=== PATIENT | male | born 1985 | race American Indian/Alaskan Native ===

== ENCOUNTER 2017-02-01 21:15 | Inpatient (IN) | payer MEDICARE ==
[2017-02-01] MEDS ORDERED: SUBLIMAZE IV ONE (22:23)
[2017-02-01] MEDS ORDERED: ZOFRAN IV ONE (22:23)
--- NOTE | 2017-02-01 22:25 | Emergency Department Report ---
HPI - General Chief Complaint: Chest Pain Time Seen by Provider: 02/01/17 22:09 - HPI HPI: Room 6 The patient is a 29-year-old male presenting with a chief complaint of shortness of breath. The patient states last night developed shortness of breath and has been worsening since. Patient admits to occasional cough productive of blood-tinged sputum. Patient complains of pain in the right rib. Patient does admit to rhinorrhea and nausea but denies vomiting. Patient denies any history of fever. Patient gives his pain a score of 11/10 Location: Right ribs Duration: Constant since last night Quality: Pain Severity:11/10 Modifying factors: [see above] Context: [see above] Mode of transportation: [not driving] ED Past Medical Hx - Past Medical History Previous Medical History?: Yes Hx Congestive Heart Failure: Yes Hx Renal Disease: Yes (Dialysis MWF) - Surgical History Past Surgical History?: No Additional Surgical History: Left upper extremity fistula, nonfunctional. - Social History Smoking Status: Never Smoker Substance Use Type: Marijuana ED Review of Systems ROS: Stated complaint: ZEYNEP/DIALYSIS Other details as noted in HPI Comment: All other systems reviewed and negative Constitutional: denies: chills, fever Eyes: denies: eye pain, eye discharge, vision change ENT: other (rhinorrhea) Respiratory: cough, shortness of breath Cardiovascular: denies: chest pain Endocrine: no symptoms reported Gastrointestinal: nausea. denies: vomiting Genitourinary: denies: urgency, dysuria Musculoskeletal: denies: back pain, joint swelling, arthralgia Skin: denies: rash, lesions Neurological: denies: headache, weakness, paresthesias Psychiatric: denies: anxiety, depression Hematological/Lymphatic: denies: easy bleeding, easy bruising Physical Exam - Physical Exam Physical Exam: GENERAL: The patient is well-developed well-nourished male sitting on stretcher appearing to be in moderate discomfort. [] HEENT: Normocephalic. Atraumatic. Extraocular motions are intact. Patient has moist mucous membranes. NECK: Supple. Trachea midline CHEST/LUNGS: Clear to auscultation. There is no respiratory distress noted. HEART/CARDIOVASCULAR: Regular. There is no tachycardia. There is no gallop rub or murmur. ABDOMEN: Abdomen is soft, nontender. Patient has normal bowel sounds. There is no abdominal distention. SKIN: There is no rash. There is no edema. There is no diaphoresis. NEURO: The patient is awake, alert, and oriented. The patient is cooperative. The patient has normal speech MUSCULOSKELETAL: There is no evidence of acute injury. ED Course - Consultations Consultation #1: 02/01/17 22:59 Nephrology paged 02/01/17 23:[address] Calderon-Will arrange hemodialysis ED Medical Decision Making - Lab Data Result diagrams: 02/01/17 22:13 02/01/17 22:13 Laboratory Tests 02/01/17 02/01/17 02/01/17 22:13 22:13 22:13 WBC 12.7 H RBC 4.80 Hgb 11.4 L Hct 37.0 MCV 77 L MCH 24 L MCHC 31 L RDW 20.4 H Plt Count 179 Lymph % (Auto) 9.5 L [place] % (Auto) 7.8 H Eos % (Auto) 0.5 Baso % (Auto) 1.2 Lymph # 1.2 [place] # 1.0 H Eos # 0.1 Baso # 0.2 H Seg Neutrophils % 81.0 H Seg Neutrophils # 10.3 H PT 16.0 H INR 1.29 H APTT 37.0 H Sodium 136 L Potassium 6.8 H* Chloride 99.5 Carbon Dioxide 20 L Anion Gap 23 BUN 51 H Creatinine 4.3 H Estimated GFR 19 BUN/Creatinine Ratio 11.86 Glucose 96 Calcium 10.0 Total Creatine Kinase 66 CK-MB (CK-2) 1.0 CK-MB (CK-2) Rel Index 1.5 Troponin T < 0.010 - EKG Data -: EKG Interpreted by Me EKG shows normal: sinus rhythm Rate: normal - EKG Data When compared to previous EKG there are: previous EKG unavailable Interpretation: nonspecific ST-T wave cynthia (T-wave inversions in leads 1, aVL, V5 , V6. ) - Radiology Data Radiology results: image reviewed (chest x-ray) interpreted by me: Chest x-ray- right upper lobe opacity. No pneumothorax - Differential Diagnosis CHF, pneumonia, hyperkalemia, PE Critical Care Time: Yes Critical care time in (mins) excluding proc time.: 30 Critical care attestation.: If time is entered above; I have spent that time in minutes in the direct care of this critically ill patient, excluding procedure time. ED Disposition Clinical Impression: Shortness of breath, Hyperkalemia, End stage renal disease Disposition: OP ADMITTED IP TO THIS HOSP Is pt being admited?: Yes Does the pt Need Aspirin: Yes Condition: Serious Referrals: PRIMARY CARE,MD [Primary Care Provider] - 3-5 Days Time of Disposition: 23:16 (is discussed with Dr. Sheldon)
[2017-02-01 22:30] LABS: Basophils % (Auto) 1.2 % (0.0-1.8); Eosinophils % (Auto) 0.5 % (0.0-4.3); Hemoglobin 11.4 gm/dl (11.8-15.2); Mean Corpuscular HGB Conc 31 % (32-34); Mean Corpuscular Volume 77 fl (84-94); Platelet Count 179 K/mm3 (140-440); White Blood Count 12.7 K/mm3 (4.5-11.0)
[2017-02-01 22:31] LABS: Mean Corpuscular Hemoglobin 24 pg (28-32); Red Cell Distribution Width 20.4 % (13.2-15.2)
[2017-02-01 22:41] LABS: INR 1.29 (0.87-1.13)
[2017-02-01 22:49] LABS: Anion Gap 23 mmol/L; BUN/Creatinine Ratio 11.86; Blood Urea Nitrogen 51 mg/dL (9-20); Carbon Dioxide 20 mmol/L (22-30); Chloride 99.5 mmol/L (98-107); Creatine Kinase 66 units/L (55-170); Glucose 96 mg/dL (75-100); Sodium 136 mmol/L (137-145)
[2017-02-01 22:54] LABS: Potassium 6.8 mmol/L (3.6-5.0)
[2017-02-01] MEDS ORDERED: PROVENTIL IH ONE (22:55)
[2017-02-01] MEDS ORDERED: SODIUM BICARBONATE IV ONE ×2 (22:56→23:15)
[2017-02-01] MEDS ORDERED: CALCIUM GLUCONATE 1,000 MG in NACL 0.9% 100 ML IV ONE (22:56)
[2017-02-01] MEDS ORDERED: D50W (25GM) IV ONE (22:56)
[2017-02-01] MEDS ORDERED: NACL 0.9% 100 ML IV PRN (23:27)
[2017-02-02] MEDS: HEPARIN IV PRN (04:00)
[2017-02-02] MEDS: DILAUDID IV PRN ×4 (05:53→20:23)
[2017-02-02] MEDS ORDERED: ZOFRAN IV PRN (05:55)
--- NOTE | 2017-02-02 07:11 | Event Note ---
Date: 02/01/17 See H/p in reports Hyperkalemia Volume overload Htn ESRD on HD
[2017-02-02] MEDS ORDERED: NACL ONE (07:31)
[2017-02-02 08:01] LABS: BUN/Creatinine Ratio 8.7; Calcium 9.5 mg/dL (8.4-10.2); Potassium 4.9 mmol/L (3.6-5.0)
--- NOTE | 2017-02-02 08:21 | History and Physical Report ---
CHIEF COMPLAINT: 1.Increasing shortness of breath. 2.Feels weak. HISTORY OF PRESENT ILLNESS: A 31-year-old -[place] male comes in for increasing shortness of breath. The patient missed dialysis on Friday. The patient also has blood-tinged sputum when coughing, which did not persist. Had one episode of small blood tinged sputum. No fever, no chills. Noncompliance. Missed dialysis. No chest pain. No orthopnea present. No PND attacks. PAST MEDICAL HISTORY: Significant for end-stage renal disease, on dialysis Friday, Friday and Friday; congestive heart failure; hypertension. PAST SURGICAL HISTORY: Left upper extremity fistula, nonfunctional. SOCIAL HISTORY: Does not smoke, but smokes marijuana. CURRENT MEDICATIONS: Not mentioned in the history and not mentioned on the AI sheet and the patient not able to tell. FAMILY HISTORY: Hypertension. REVIEW OF SYSTEMS: CONSTITUTIONAL: No fever, no chills. No weight loss, no weight gain. HEENT: No sore throat, no postnasal drip. CARDIOVASCULAR AND RESPIRATORY: As mentioned, increasing shortness of breath and orthopnea present. Cough productive of blood-tinged sputum x 1 episode. GASTROINTESTINAL: No nausea, no vomiting, no diarrhea. GENITOURINARY: No dysuria, no flank pain. MUSCULOSKELETAL: No joint pains. CENTRAL NERVOUS SYSTEM: No syncope, no seizures. SKIN: No rashes. PSYCHIATRIC: No homicidal or suicidal ideations. A 14-point review of systems done, otherwise negative. PHYSICAL EXAMINATION: GENERAL: Young male, cooperative during examination and mild respiratory distress. VITAL SIGNS: Blood pressure is 132/82, temperature is 97.8, pulse is 89, respirations are 20. HEENT: Unremarkable. Pupils equal and reactive. NECK: Supple, no lymphadenopathy, no thyromegaly. LUNGS: Clear to auscultation and percussion. Good air entry. CARDIOVASCULAR: S1, S2 heard. No gallop, no murmur, no rub. Apical impulse in left fifth intercostal space and midclavicular line. ABDOMEN: Soft and benign. No hepatosplenomegaly. No guarding, no rigidity. Hernial orifices are normal. EXTREMITIES: Good pedal pulses. No pedal edema. CENTRAL NERVOUS SYSTEM: Alert and oriented x 4, nonfocal exam. LABORATORY DATA: Significant for potassium of 6.8 and hemoglobin is 11.4, hematocrit 37.0, platelet count is 179,000. Sodium is 136, bicarbonate is 20, BUN and creatinine 51 and 4.3. CK index is normal. Hepatitis profile nonreactive. EKG shows nonspecific ST-T wave changes. Heart rate of 80 per minute. Also, chest x-ray shows right upper lobe opacity. ASSESSMENT AND PLAN: 1. Hyperkalemia. Hyperkalemia to be corrected. The patient was given D50W insulin and sodium bicarbonate in the ER. Also, calcium gluconate. Kayexalate was not given. The patient is getting emergent dialysis since Kayexalate not given. We will recheck the potassium. 2. Volume overload secondary to missed dialysis, needs increased ultrafiltration. The patient with the hemodialysis. The patient is under Dr. Ken for hemodialysis. The patient to be compliant. 3. Hypertension, controlled. The patient's home medications are not mentioned, hence could not reconcile. 4. Hemoptysis, mild. We will get CT chest with contrast because of the right upper lobe opacity on the chest x-ray. Also, V/Q scan to rule out PE. 5. Deep venous thrombosis prophylaxis, heparin 5000 q.12.h. JOB# [id number] CHRISTIANO/ELLIE
--- NOTE | 2017-02-02 10:06 | XRay Report ---
AP CHEST :02/01/17 21:15:00 CLINICAL: Difficulty breathing. COMPARISON:None. FINDINGS: Cardiomegaly and mild central vascular prominence. The lungs are normally expanded and clear. The bones and soft tissues are normal.A right Vas-Cath tip is in the right atrium. IMPRESSION: Cardiomegaly and mild pulmonary venous hypertension. No pulmonary edema.
--- NOTE | 2017-02-02 10:47 | Cat Scan Report ---
CT CHEST WITH CONTRAST: 02/02/17 06:58:00 CLINICAL: Hemoptysis. TECHNIQUE: PE protocol with volumetric acquisition and 1.25 mm scan reconstructions after the uneventful intravenous injection of 100 cc Omnipaque 350. Consent was obtained prior to the administration of contrast. FINDINGS: Good opacification of the pulmonary arteries and pulmonary artery thrombus identified in the right middle lobe artery and posterior segmental and subsegmental right upper lobe arteries. A patchy right upper lobe opacity is identified peripheral to the thrombus extends to the pleura. [place]glass right middle lobe opacities with a "crazy paving" pattern. A pleural-based nodule of the right lower lobe is noncalcified and measures 2.1 x 1.6 cm. Left lower lobe patchy and streaky opacities. No pleural effusion. The heart is greatly enlarged with enlarged left atrium and a thick left ventricle. Normal aorta. Normal lungs and mediastinum. Normal thyroid, trachea and esophagus. The upper abdomen is unremarkable. The bones and soft tissues are normal. IMPRESSION: 1. Positive study for pulmonary embolus and moderate burden of thrombus in the right upper lobe and right middle lobe. 2. A 2.1 cm right lower lobe pleural-based nodule. 3. Left lower lobe airspace disease and/or atelectasis. I spoke to the patient's nurse regarding these findings on 02/02/17 at 10:40. JESUS EDWARDS
--- NOTE | 2017-02-02 10:50 | Nuclear Medicine Report ---
VENTILATION/PERFUSION LUNG SCAN: 02/01/17 23:20:00 CLINICAL: Shortness of breath TECHNIQUE: 15.0 millicuries of xenon-133 was administered by aerosol and 5.0mCi of technetium 99m MAA was administered intravenously. Comparison is made to a 02/01/17 chest x-ray. FINDINGS: Inhalation of Xenon gas demonstrates a normal distribution of the activity throughout both lungs. The wash out phases show no focal retention of activity. After injection of Technetium 99m macroaggregated albumin gamma camera imaging of the lungs in multiple projections demonstrates focal perfusion defects of the right upper lobe involving all three segments. This corroborates the positive findings on today's CT angiogram. However, no perfusion defect is identified in the right middle lobe correlate with the positive finding of right middle lobe artery thrombus. IMPRESSION: High probability for pulmonary embolus. CODE PURPLE
--- NOTE | 2017-02-02 12:15 | Progress Note ---
Assessment and Plan Assessment and plan: Acute respiratory failure due to fluid overload from missed hemodialysis. ESRD on hemodialysis. He is on - schedule. Missed dialysis on Friday. Dialysis done yesterday. Nephrology following. Pulmonary embolism on right side. patient states he had pulmonary embolism diagnosed in Jul 2016, is supposed to be on Coumadin but has been non- compliant. He tells me he only took meds 3 days over past 30 days. Current INR 1.29. Start Heparin drip, Coumadin 10mg po daily. I discussed with him he needs to be compliant. Blood tinged sputum due to pulmonary edema, minor Full code status History Interval history: Less shortness of breath, no chest pain, says he had Pulm embolism diagnosed in Jul 2016, but has been non-compliant with meds Hospitalist Physical - Physical exam Narrative exam: Gen: Not in acute distress HEENT: Normocephalic, atraumatic Neck: supple, no JVD Lungs: Bilateral basal rales, no heeze Heart :S1-S2 regular, no murmurs, rubs or gallop, Abdomen: soft, non tender, non distended, normal bowel sounds present Ext: No edema, clubbing or cyanosis Neuro: Awake.alert, oriented x 3, no focal neuro signs, - Constitutional Vitals: Temp Pulse Resp BP Pulse Ox 97.7 F 86 20 110/80 98 02/02/17 12:08 02/02/17 12:08 02/02/17 12:08 02/02/17 12:08 02/02/17 12:08 Results - Labs CBC & Chem 7: 02/01/17 22:13 02/02/17 07:22 Labs: Laboratory Last Values WBC 12.7 K/mm3 (4.5-11.0) H 02/01/17 22:13 RBC 4.80 M/mm3 (3.65-5.03) 02/01/17 22:13 Hgb 11.4 gm/dl (11.8-15.2) L 02/01/17 22:13 Hct 37.0 % (35.5-45.6) 02/01/17 22:13 MCV 77 fl (84-94) L 02/01/17 22:13 MCH 24 pg (28-32) L 02/01/17 22:13 MCHC 31 % (32-34) L 02/01/17 22:13 RDW 20.4 % (13.2-15.2) H 02/01/17 22:13 Plt Count 179 K/mm3 (140-440) 02/01/17 22:13 Lymph % (Auto) 9.5 % (13.4-35.0) L 02/01/17 22:13 [place] % (Auto) 7.8 % (0.0-7.3) H 02/01/17 22:13 Eos % (Auto) 0.5 % (0.0-4.3) 02/01/17 22:13 Baso % (Auto) 1.2 % (0.0-1.8) 02/01/17 22:13 Lymph # 1.2 K/mm3 (1.2-5.4) 02/01/17 22:13 [place] # 1.0 K/mm3 (0.0-0.8) H 02/01/17 22:13 Eos # 0.1 K/mm3 (0.0-0.4) 02/01/17 22:13 Baso # 0.2 K/mm3 (0.0-0.1) H 02/01/17 22:13 Seg Neutrophils % 81.0 % (40.0-70.0) H 02/01/17 22:13 Seg Neutrophils # 10.3 K/mm3 (1.8-7.7) H 02/01/17 22:13 PT 16.0 Sec. (12.2-14.9) H 02/01/17 22:13 INR 1.29 (0.87-1.13) H 02/01/17 22:13 APTT 37.0 Sec. (24.2-36.6) H 02/01/17 22:13 Sodium 138 mmol/L (137-145) 02/02/17 07:22 Potassium 4.9 mmol/L (3.6-5.0) D 02/02/17 07:22 Chloride 97.0 mmol/L (98-107) L 02/02/17 07:22 Carbon Dioxide 26 mmol/L (22-30) 02/02/17 07:22 Anion Gap 20 mmol/L 02/02/17 07:22 BUN 27 mg/dL (9-20) H 02/02/17 07:22 Creatinine 3.1 mg/dL (0.8-1.5) H 02/02/17 07:22 Estimated GFR 28 ml/min 02/02/17 07:22 BUN/Creatinine Ratio 8.70 % 02/02/17 07:22 Glucose 111 mg/dL (75-100) H 02/02/17 07:22 Calcium 9.5 mg/dL (8.4-10.2) 02/02/17 07:22 Total Creatine Kinase 66 units/L (55-170) 02/01/17 22:13 CK-MB (CK-2) 1.0 ng/mL (0.0-4.0) 02/01/17 22:13 CK-MB (CK-2) Rel Index 1.5 (0-4) 02/01/17 22:13 Troponin T < 0.010 ng/mL (0.00-0.029) 02/01/17 22:13 Hepatitis A IgM Ab Non-reactive (NonReactive) 02/02/17 04:50 Hep B Core IgM Ab Non-reactive (NonReactive) 02/02/17 04:50 Hepatitis C Antibody Non-reactive (NonReactive) 02/02/17 04:50
--- NOTE | 2017-02-02 13:49 | Consultation ---
History of Present Illness - Reason for Consult Consult date: 02/02/17 end stage renal disease - History of Present Illness Mr. Mcdonald is a 31yo with ESRD on HD MWF who presented to the ED with progressive worsening of shortness of breath. He reports that he missed dialysis on Friday and Friday. He reports right anterior/lateral chest pain. He reports cough productive of blood tinged sputum. He denies fever, chills and sweats. He denies nausea and vomiting. Past History Past Medical History: ESRD, hypertension Past Surgical History: Other (AV access placement) Social history: no significant social history Family history: no significant family history Medications and Allergies Allergies Allergy/AdvReac Type Severity Reaction Status Date / Time Penicillins Allergy Unknown Verified 02/01/17 21:39 Active Meds: Active Medications Heparin Sodium (Porcine) (Heparin) 5,000 unit IV TALIA PRN PRN Reason: hemodialysis Last Admin: 02/02/17 04:00 Dose: 5,000 unit Hydromorphone HCl (Dilaudid) 1 mg IV Q3H PRN PRN Reason: Pain , Severe (7-10) Last Admin: 02/02/17 09:19 Dose: 1 mg Sodium Chloride (Nacl 0.9%) 100 mls @ 999 mls/hr IV TALIA PRN PRN Reason: Hypotension Heparin Sodium/Sodium Chloride (Heparin/ 0.45% Nacl-25,000 Unit/500 Ml) 25,000 units in 500 mls @ 20 mls/hr IV TITR YUN; 1,000 UNITS/HR PRN Reason: Protocol Ondansetron HCl (Zofran) 4 mg IV Q8H PRN PRN Reason: Nausea And Vomiting Warfarin Sodium (Coumadin) 10 mg PO ONCE ONE PRN Reason: Protocol Stop: 02/02/17 14:01 Warfarin Sodium (Coumadin Pharmacy To Dose) 1 each PO PKCONSULT YUN PRN Reason: Protocol Warfarin Sodium (Coumadin) 10 mg PO DAILY@1700 YUN PRN Reason: Protocol Review of Systems Constitutional: no fever, no chills, no sweats Cardiovascular: chest pain, shortness of breath Respiratory: hemoptysis, shortness of breath, dyspnea on exertion Gastrointestinal: no abdominal pain, no nausea, no vomiting, no diarrhea Musculoskeletal: muscle cramps Integumentary: no rash Exam - Vital Signs Vital signs: Vital Signs Pulse Resp 93 H 20 02/01/17 21:21 02/01/17 21:21 - General Appearance General appearance: well-developed, well-nourished EENT: ATNC Respiratory: Clear to Ascultation Heart: regular, S1S2 Gastrointestinal: Present: normal. Absent: tenderness, distended Integumentary: no rash, warm and dry Neurologic: no focal deficit Musculoskeletal: Present: other (no edema) Psychiatric: cooperative Results - Lab Results 02/02/17 13:40 02/02/17 07:22 Most recent lab results Calcium 9.5 mg/dL (8.4-10.2) 02/02/17 07:22 Assessment and Plan Assessment: * End stage renal disease * Dypsnea secondary to pulmonary edema vs pulmonary embolus * Pulmonary embolus * Hyperkalemia - resolved * Hypertension * Secondary hyperparathyroidism Plan; * Patient is s/p urgent HD yesterday * Continue HD MWF. UF as tolerated * CTA reviewed; anticoagulation per primary team * Cardiac work up in progress - TTE pending * Continue antiHTN medications * Renal diet * Need for compliance with dialysis addressed
[2017-02-02] MEDS ORDERED: COUMADIN PO ONE (14:00)
[2017-02-02 14:35] LABS: INR 1.35 (0.87-1.13)
[2017-02-02 14:36] LABS: Partial Thromboplastin Time 37.1 Sec. (24.2-36.6)
[2017-02-02 14:42] LABS: Hemoglobin 11.6 gm/dl (11.8-15.2)
[2017-02-02] MEDS: HEPARIN/ 0.45% NACL-25,000 UNIT/500 ML 25,000 UNITS/500 ML BAG IV SCH ×2 (15:17→22:00)
[2017-02-02] MEDS ORDERED: NACL 0.9% 100 ML IV PRN (23:32)
[2017-02-03] MEDS: DILAUDID IV PRN ×4 (00:55→15:17)
[2017-02-03] MEDS ORDERED: HEPARIN 10,000 UNITS/10 ML IV ONE (04:17)
[2017-02-03 07:58] LABS: Basophils % (Auto) 0.4 % (0.0-1.8); Eosinophils % (Auto) 0.9 % (0.0-4.3); Hemoglobin 10.7 gm/dl (11.8-15.2); Mean Corpuscular HGB Conc 31 % (32-34); Mean Corpuscular Volume 77 fl (84-94); Platelet Count 137 K/mm3 (140-440); Red Blood Count 4.54 M/mm3 (3.65-5.03); Red Cell Distribution Width 19.9 % (13.2-15.2); White Blood Count 9.9 K/mm3 (4.5-11.0)
[2017-02-03 08:05] LABS: INR 1.51 (0.87-1.13)
[2017-02-03 08:19] LABS: Mean Corpuscular Hemoglobin 24 pg (28-32)
[2017-02-03 09:09] LABS: Calcium 9.4 mg/dL (8.4-10.2); Chloride 95.2 mmol/L (98-107)
--- NOTE | 2017-02-03 09:57 | Admit Criteria Form ---
Admission Criteria Documentation: HYPONATREMIA; HYPERNATREMIA; HYPOKALEMIA; HYPERKALEMIA; HYPOCALCEMIA; HYPERCALCEMIA Clinical Indications for Inpatient Care (Place 'X' for any and all applicable criteria): Ongoing inpatient care may be indicated for ANY ONE of the following [G](1)(2)(3 )(5): [ ]I. Hyponatremia with ANY ONE of the following: [ ]a) Sodium less than 130 mEq/L (mmol/L) (new) (6)(22) [ ]b) Sodium less than 135 mEq/L (mmol/L) with ANY ONE of the following: [ ]i) Severe medical etiology requiring inpatient management (eg, heart failure, hypovolemia) [ ]ii) Altered mental status [ ]iii) Seizures [ ]II. Hypernatremia with ANY ONE of the following: [ ]a) Sodium greater than 155 mEq/L (mmol/L) [ ]b) Sodium greater than 150 mEq/L (mmol/L) with ANY ONE of the following: [ ] i) Altered mental status [ ]ii) Seizures [ ]iii) Severe medical etiology (eg, hypovolemia, diabetes insipidus) [ ]iv) Severe weakness [ ]v) Severe medical etiology (eg, hemolysis, infection, drug overdose) [ ]III. Hypokalemia with ANY ONE of the following: [ ]a) Potassium less than 2.5 mEq/L (mmol/L) despite outpatient and emergency treatment [ ]b) Potassium less than 3.0 mEq/L (mmol/L) with ANY ONE of the following: [ ]i) Weakness [ ]ii) Cardiac abnormality (eg, arrhythmia, conduction disturbance) [ ]iii) Cardiac ischemia [ ]iv) Ileus [ ]v) Ongoing medical cause requiring inpatient management. ( e.g., acute renal wasting, SIADH) [ ]vi) Other severe symptoms [X] IV. Hyperkalemia with ANY ONE of the following: [X]a) Potassium greater than 6.5 mEq/L (mmol/L) [ ]b) Potassium greater than 5 mEq/L (mmol/L) with ANY ONE of the following: [ ]i) Severe ECG findings [H] [ ]ii) Acute worsening of renal failure (creatinine greater than 2.5 mg/dL (221 micromoles/L) or significant elevation for age and size) [ ] V. Hypocalcemia with ANY ONE of the following: [ ]a) Calcium less than 7 mg/dL (1.75 mmol/L) despite outpatient and emergency treatment(19) [ ]b) Calcium less than 8 mg/dL (2 mmol/L) with significant symptoms or findings; examples include: [ ]i) Cardiac abnormality (eg, arrhythmia or conduction disturbance) [ ]ii) Altered mental status [ ]iii) Seizures [ ]iv) Breathing difficulty [ ]v) Muscle spasms [ ]. Hypercalcemia with ANY ONE of the following: [ ]a) Calcium greater than 14 mg/dL (3.5 mmol/L) [ ]b) Calcium greater than 12 mg/dL (3 mmol/L) with ANY ONE of the following: [ ]i) Significant dehydration or hypovolemia as indicated by ANY ONE of the following(2): [ ]1. Clinically significant dehydration as indicated by ANY ONE of the following: [ ]A. Acute loss of weight from baseline (5% of body weight in adults, 9% in pediatric patients) [ ]B. Hemodynamic instability [ ]C. Acute renal failure [ ]D. Serum sodium greater than 150 mEq/L (mmol/L) [ ]2) Dehydration that is persistent indicated by ALL of the following: [ ]A. Oral rehydration therapy not tolerated or insufficient to adequately correct dehydration [ ]B. Appropriate intravenous treatment (eg, fluids ) does not readily correct dehydration ie, after 12 to 24 hours of treatment) [ ]ii) Significant symptoms or findings; examples include: [ ]1) Altered mental status [ ]2) Cardiac abnormality (eg, arrhythmia, conduction disturbance) [ ]3) Cardiac abnormality (eg, arrhythmia, conduction disturbance) The original [employer] [employer] content created by [employer] has been revised. The portions of the content which have been revised are identified through the use of italic text or in bold, and [facility] has neither reviewed nor approved the modified material. All other unmodified content is copyright [facility] [employer] Please see references footnoted in the original [facility] [employer] edition 2016 Admission Criteria Met: Yes
--- NOTE | 2017-02-03 10:12 | Progress Note ---
Assessment and Plan Assessment: * End stage renal disease * Dypsnea secondary to pulmonary edema vs pulmonary embolus * Pulmonary embolus * Hyperkalemia - resolved * Hypertension * Secondary hyperparathyroidism Plan; * Continue HD MWF. UF as tolerated * CTA reviewed; anticoagulation per primary team * Cardiac work up in progress - TTE pending * Continue antiHTN medications * Renal diet * Need for compliance with dialysis addressed Subjective Date of service: 02/03/17 Principal diagnosis: esrd Interval history: resting in bed Objective - Exam Narrative Exam: General appearance: well-developed, well-nourished EENT: ATNC Respiratory: Clear to Ascultation Heart: regular, S1S2 Gastrointestinal: Present: normal. Absent: tenderness, distended Integumentary: no rash, warm and dry Neurologic: no focal deficit Musculoskeletal: Present: other (no edema) Psychiatric: cooperative - Vital Signs Vital signs: Vital Signs - 12hr 02/03/17 02/03/17 02/03/17 00:55 01:30 05:45 Temperature 98.3 F 97.9 F Pulse Rate [ 104 H 88 Right Radial] Respiratory 20 18 18 Rate Blood Pressure 120/62 84/56 [Right Arm] O2 Sat by Pulse 98 97 Oximetry 02/03/17 06:18 Temperature Pulse Rate [ Right Radial] Respiratory 20 Rate Blood Pressure [Right Arm] O2 Sat by Pulse Oximetry - Lab 02/03/17 07:10 02/03/17 08:45 Most recent lab results Calcium 9.4 mg/dL (8.4-10.2) 02/03/17 08:45
[2017-02-03] MEDS ORDERED: NACL 0.9 (PRIMING MACHINE ONLY DIALYSIS) MC ONE (10:35)
--- NOTE | 2017-02-03 10:57 | Discharge Summary ---
Providers - Providers Date of Admission: 02/01/17 23:20 Date of discharge: 02/03/17 Attending physician: CHRISTINE BARONE Primary care physician: VOICE INSTRUCTOR Hospitalization Condition: Good Hospital course: Patient is 31 yo with ESRD n dialysis, history of pulmonary embolism 6 months ago. He presented with shortness of breath after missing dialysis. he was admitted and urgent dialysis. CT Chest shows pulmonary embolism on right. He has been non-compliant with Coumadin with INR of 1.29 on admission. Dialysis was repeated following day. I discussed with Nephrology, and he was switched to Apixaban and discharged home. Total time spent on discharge, 32 mins. Disposition: DISCHARGED TO HOME OR SELFCARE - Discharge Diagnoses (1) Acute respiratory failure Status: Acute Qualifiers: Respiratory failure complication: R (2) Fluid overload Status: Acute Qualifiers: Hypervolemia type: H (3) Pulmonary edema Status: Acute Qualifiers: Chronicity: C (4) Pulmonary embolism on right Status: Chronic (5) Shortness of breath Status: Acute (6) ESRD on dialysis Status: Chronic Core Measure Documentation - Palliative Care Palliative Care/ Comfort Measures: Not Applicable - Core Measures Any of the following diagnoses?: DVT/PE - VTE Discharge Requirements Deep Vein Thrombosis/Pulmonary Embolism Present on Admission: Yes Has pt received <5 days of overlap therapy or INR<2.0: Yes Anticoagulant overlap therapy prescribed at discharge: No Contraindication No Overlap Therapy order at DC: Not Indicated (Eliquis) Exam - Physical Exam Narrative exam: Gen: Not in acute distress HEENT: Normocephalic, atraumatic Neck: supple, no JVD Lungs: Clear, no wheeze Heart :S1-S2 regular, no murmurs, rubs or gallop, Abdomen: soft, non tender, non distended, normal bowel sounds present Ext: No edema, clubbing or cyanosis Neuro: Awake.alert, oriented x 3, no focal neuro signs, - Constitutional Vitals: Temp Pulse Resp BP Pulse Ox 37 F L 85 18 107/73 97 02/03/17 10:20 02/03/17 10:30 02/03/17 10:20 02/03/17 10:30 02/03/17 05:45 Plan Activity: no restrictions Diet: low fat, low cholesterol, low salt, renal Additional Instructions: 1.Follow up with primary care physician in one week. 2.Continue routine hemodialysis as scheduled Follow up with: PRIMARY CARE, [Primary Care Provider] - 3-5 Days Forms: Warfarin Discharge Instruction Prescriptions: Apixaban [Eliquis] 2.5 mg PO BID #60 tablet
[2017-02-03] MEDS: HEPARIN IV PRN (12:04)
[2017-02-03 14:51] VITALS: BP 106/73
[2017-02-03] MEDS ORDERED: COUMADIN PO SCH (17:00)
== END 2017-02-03 17:19 | disposition home or self-care (01) | DRG 175 ==
LOC: ED 21:15 → 4A 23:20
PROVIDERS: ADMIT Internal Medicine; ATTEND Internal Medicine
PROC: 5A1D60Z (ICD-10-PCS; principal; 2017-02-02)
DX: I26.99 Other pulmonary embolism without acute cor pulmonale (principal); N18.6 End stage renal disease; J96.00 Acute respiratory failure, unspecified whether with hypoxia or hypercapnia; I13.2 Hypertensive heart and chronic kidney disease with heart failure and with stage 5 chronic kidney disease, or end stage renal disease; R04.2 Hemoptysis; E87.5 Hyperkalemia; F12.90 Cannabis use, unspecified, uncomplicated; E87.70 Fluid overload, unspecified; E21.3 Hyperparathyroidism, unspecified; Z79.01 Long term (current) use of anticoagulants; I50.9 Heart failure, unspecified; Z88.0 Allergy status to penicillin; Z91.19 Patient's noncompliance with other medical treatment and regimen; Z82.49 Family history of ischemic heart disease and other diseases of the circulatory system
CPT/HCPCS: 36415; 71010; 71275; 78582; 80048; 80074; 82550; 82553; 84484; 85014; 85018; 85025; 85049; 85520; 85610; 85730; 93005; 93010; 93306; 94640; 96374; 96375; 99291; A9540; A9558; J0610; J1170; J1644; J1815; J2405; J3010; J7030; Q9967

== ENCOUNTER 2017-04-14 00:27 | Inpatient (IN) | payer MEDICARE ==
[2017-04-14 02:09] LABS: Hematocrit 35.2 % (35.5-45.6); Hemoglobin 10.8 gm/dl (11.8-15.2); Mean Corpuscular HGB Conc 31 % (32-34); Mean Corpuscular Volume 79 fl (84-94); Platelet Count 156 K/mm3 (140-440); Red Blood Count 4.46 M/mm3 (3.65-5.03); Red Cell Distribution Width 18.7 % (13.2-15.2); White Blood Count 7.3 K/mm3 (4.5-11.0)
[2017-04-14 02:11] LABS: Mean Corpuscular Hemoglobin 24 pg (28-32)
[2017-04-14 02:23] LABS: Anion Gap 23 mmol/L; Blood Urea Nitrogen 108 mg/dL (9-20); Calcium 8.6 mg/dL (8.4-10.2); Carbon Dioxide 18 mmol/L (22-30); Chloride 105.7 mmol/L (98-107); Glucose 97 mg/dL (75-100); Potassium 5.9 mmol/L (3.6-5.0); Sodium 141 mmol/L (137-145)
[2017-04-14 02:51] LABS: Anisocytosis 1+; Blastocytes % (Manual) 0 %; Diff Status Complete; Hypochromasia 1+; Platelet Estimate Consistent w Auto
[2017-04-14] MEDS ORDERED: PROVENTIL IH ONE (08:42)
[2017-04-14] MEDS ORDERED: D50W (25GM) IV ONE (08:42)
[2017-04-14] MEDS ORDERED: KIONEX PO ONE ×3 (08:43→22:00)
--- NOTE | 2017-04-14 08:56 | Emergency Department Report ---
HPI - General Chief Complaint: Pain General Time Seen by Provider: 04/14/17 08:26 - HPI HPI: This is a 31-year-old [place] male presents the emergency department with complaint of needing dialysis. The patient says that his right-sided chest Vas- Cath has not been working since Friday. He said that he only had about have a session on Friday, did not have one on Friday and presents today with some body aches and shortness of breath. His grain merchandiser is Dr. Ken. He says that he had the Vas-Cath originally placed at [facility]. He denies any fever, chest pain, nausea, vomiting. No recent travel or sick contacts at home. He has not taken anything for his symptoms prior to presentation. ED Past Medical Hx - Past Medical History Hx Hypertension: Yes Hx Congestive Heart Failure: Yes Hx Diabetes: No Hx Pulmonary Embolism: Yes (on coumadin) Hx Renal Disease: Yes (Dialysis MWF) Hx Asthma: No Hx COPD: No Hx HIV: No - Surgical History Additional Surgical History: Left upper extremity fistula, nonfunctional. - Social History Smoking Status: Current Every Day Smoker - Medications Home Medications: Home Medications Medication Instructions Recorded Confirmed Last Taken Type Calcium Acetate 667 mg PO DAILY 03/13/17 04/14/17 Unknown History Carvedilol [Coreg] 25 mg PO BID 03/13/17 04/14/17 Unknown History Furosemide [Lasix TAB] 40 mg PO QDAY 03/13/17 04/14/17 Unknown History Rosuvastatin Calcium 20 mg PO DAILY 03/13/17 04/14/17 Unknown History Warfarin [Coumadin] 7.5 mg PO DAILY@1700 #14 tablet 03/14/17 04/14/17 Unknown Rx ED Review of Systems ROS: Stated complaint: VASCATHETER NOT WORKING/BODYACHES Other details as noted in HPI Comment: All other systems reviewed and negative Constitutional: denies: chills, fever Eyes: denies: eye pain, eye discharge, vision change ENT: denies: ear pain, throat pain Respiratory: shortness of breath. denies: cough Cardiovascular: denies: chest pain, palpitations Gastrointestinal: denies: abdominal pain, nausea, diarrhea Genitourinary: denies: urgency, dysuria Musculoskeletal: myalgia. denies: joint swelling Skin: denies: rash, lesions Neurological: denies: headache, weakness, paresthesias Physical Exam - Physical Exam Vital Signs: Vital Signs 04/14/17 04/14/17 00:36 05:12 Temperature 98.1 F 98.2 F Pulse Rate 93 H 92 H Respiratory 18 18 Rate Blood Pressure 114/111 128/98 O2 Sat by Pulse 97 100 Oximetry Physical Exam: GENERAL: The patient is well-developed well-nourished. HEENT: Normocephalic. Atraumatic. Extraocular motions are intact. Patient has moist mucous membranes. Pupils equal reactive to light bilaterally. NECK: Supple. Trachea is midline. CHEST/LUNGS: Coarse breath sounds throughout the chest. There is mild tachypnea but no accessory muscle use. There is no respiratory distress noted. HEART/CARDIOVASCULAR: Regular. There is no tachycardia. There is no gallop rub or murmur. ABDOMEN: Abdomen is soft, nontender. Patient has normal bowel sounds. There is no abdominal distention. SKIN: Skin is warm and dry. NEURO: The patient is awake, alert, and oriented. The patient is cooperative. The patient has no focal neurologic deficits. The patient has normal speech. MUSCULOSKELETAL: There is no tenderness or deformity. There is no limitation range of motion. There is no evidence of acute injury. ED Course Vital Signs 04/14/17 04/14/17 00:36 05:12 Temperature 98.1 F 98.2 F Pulse Rate 93 H 92 H Respiratory 18 18 Rate Blood Pressure 114/111 128/98 O2 Sat by Pulse 97 100 Oximetry - Consultations Consultation #1: I spoke to the patient's grain merchandiser, Dr. eKn, who is aware of the patient's admission and need for dialysis. Dr. Ken says that the dialysis team will attempt to use the vas cath and give some TPA but if that does not work he will need vascular intervention for a new vas cath or temporary access. 04/14/17 11:17 ED Medical Decision Making - Lab Data Result diagrams: 04/14/17 01:29 04/14/17 01:29 - EKG Data -: EKG Interpreted by Me EKG shows normal: sinus rhythm, axis (LAD), intervals (left anterior fascicular block), QRS complexes (Q waves to the anterior leads), ST-T waves (T-wave inversions to the lateral leads) Rate: normal - EKG Data When compared to previous EKG there are: no significant change Interpretation: unchanged when compared t (04/03/17) - Radiology Data Radiology results: image reviewed interpreted by me: Chest x-ray shows some pulmonary vascular congestion and cardiomegaly but no overt pleural effusions and no obvious pneumonia. - Medical Decision Making 31-year-old male presents with a lack of dialysis for the past 2 sessions since Friday. He has some shortness of breath and body aches. He does not appear overtly fluid overloaded on chest x-ray but there are coarse breath sounds. He is not in any respiratory distress. However labs show hyperkalemia with a potassium of 5.9. He was given the hyperkalemia cocktail including Kayexalate and calcium gluconate. Nephrology is aware and will attempt to use the Vas- Cath by giving TPA but if not will need vascular intervention. Patient will be admitted to the hospitalist service and accepted by the hospitalist nurse practitioner, Mark. - Differential Diagnosis hyperkalemia, CHF, pneumonia Critical Care Time: No Critical care attestation.: If time is entered above; I have spent that time in minutes in the direct care of this critically ill patient, excluding procedure time. ED Disposition Clinical Impression: Shortness of breath, ESRD needing dialysis, Noncompliance with renal dialysis Vascular catheter dysfunction Qualifiers: Encounter type: initial encounter Qualified Code(s): T82.41XA - Breakdown ( mechanical) of vascular dialysis catheter, initial encounter Disposition: OP ADMIT IP TO THIS HOSP Is pt being admited?: Yes Condition: Stable Time of Disposition: 11:21
[2017-04-14] MEDS ORDERED: NACL 0.9% 100 ML IV PRN ×3 (09:05→15:18)
[2017-04-14] MEDS ORDERED: HEPARIN 10,000 UNITS/10 ML IV PRN (09:05)
[2017-04-14] MEDS ORDERED: HEPARIN IV PRN (09:05)
--- NOTE | 2017-04-14 09:08 | XRay Report ---
PORTABLE CHEST INDICATION: Shortness of breath. COMPARISON: 03/13/2017 FINDINGS: Portable, frontal chest radiograph again demonstrates mild cardiomegaly and right sided dual lumen catheter. Well-expanded lungs with approximately 2.5 cm right upper lobe subtle opacity/infiltrate noted behind the catheter tubing. Minimal fluid or thickening along the right minor fissure. Intact bones. EKG leads. CONCLUSION: Small right upper lobe opacity/pneumonia with stable cardiomegaly and right-sided central catheter in this patient with recent pulmonary embolism, as described. Thank you for the opportunity to participate in this patient's care.
[2017-04-14] MEDS ORDERED: CATHFLO IV PRN (09:16)
[2017-04-14] MEDS ORDERED: CALCIUM GLUCONATE 1,000 MG in NACL 0.9% 100 ML IV ONE (09:30)
[2017-04-14] MEDS ORDERED: PROVENTIL IH PRN (09:55)
[2017-04-14] MEDS ORDERED: ZOFRAN IV PRN (09:55)
[2017-04-14] MEDS ORDERED: DULCOLAX PR PRN (09:55)
[2017-04-14 11:43] LABS: INR 1.37 (0.87-1.13)
--- NOTE | 2017-04-14 11:52 | History and Physical Report ---
<SHASHANK OSUNA - Last Filed: 04/14/17 12:52> History of Present Illness Date of examination: 04/14/17 Date of admission: 04/14/17 09:55 Chief complaint: missed hemodialysis, generalized body aches and nausea History of present illness: Patient is a 31 years old male with past medical History of HTN, ESRD on hemodialysis MWF and PE, who presents to emergency department today with complains of generalized body ache and nausea. Patient also reported his Vas- cath has not been working since last wensday (04/09/17). Patient states he had a partial treatment that day because of dysfunctional Vas-cath, no dialysis since then. Patient denies fever, shortness of breath,chest pain, nausea and vomiting. Past History Past Medical History: ESRD, hypertension, pulmonary embolism Past Surgical History: No surgical history, Other (right chest Vas-cath) Social history: single, lives with family, smoking Family history: CAD, hypertension Medications and Allergies Allergies Allergy/AdvReac Type Severity Reaction Status Date / Time Penicillins Allergy Unknown Verified 02/01/17 21:39 Home Medications Medication Instructions Recorded Confirmed Last Taken Type RX: Calcium Acetate 667 mg PO DAILY 03/13/17 04/14/17 Unknown History RX: Carvedilol [Coreg] 25 mg PO BID 03/13/17 04/14/17 Unknown History RX: Furosemide [Lasix TAB] 40 mg PO QDAY 03/13/17 04/14/17 Unknown History RX: Rosuvastatin Calcium 20 mg PO DAILY 03/13/17 04/14/17 Unknown History RX: Warfarin [Coumadin] 7.5 mg PO DAILY@1700 #14 tablet 03/14/17 04/14/17 Unknown Rx Active Meds: Active Medications Acetaminophen (Tylenol) 650 mg PO Q4H PRN PRN Reason: Pain MILD(1-3)/Fever >100.5/PARDO Albuterol (Proventil) 2.5 mg IH Q4HRT PRN PRN Reason: Shortness Of Breath Alteplase, Recombinant (Cathflo) 2 mg IV TALIA PRN PRN Reason: LINE FLUSH Bisacodyl (Dulcolax) 10 mg AR QDAY PRN PRN Reason: Constipation unrelieved by MOM Heparin Sodium (Porcine) (Heparin 10,000 Units/10 Ml) 1,000 unit IV TALIA PRN PRN Reason: hemodialysis Heparin Sodium (Porcine) (Heparin) 5,000 unit IV TALIA PRN PRN Reason: hemodialysis Heparin Sodium (Porcine) (Heparin) 5,000 unit SUB-Q Q12HR YUN Sodium Chloride (Nacl 0.9%) 100 mls @ 999 mls/hr IV TALIA PRN PRN Reason: Hypotension Sodium Chloride (Nacl 0.9%) 100 mls @ 999 mls/hr IV TALIA PRN PRN Reason: Hypotension Ondansetron HCl (Zofran) 4 mg IV Q4H PRN PRN Reason: N/V unrelieved by Reglan Warfarin Sodium (Coumadin) 7.5 mg PO DAILY@1700 YUN PRN Reason: Protocol Review of Systems Constitutional: no weight loss, no weight gain, no fever, no chills Ears, nose, mouth and throat: no ear pain, no ear discharge, no tinnitis Cardiovascular: shortness of breath, no chest pain, no orthopnea, no palpitations, no syncope, no lightheadedness, no dyspnea on exertion, no paroxysmal nocturnal dyspnea Gastrointestinal: no abdominal pain, no nausea, no vomiting Genitourinary Male: no dysuria, no hematuria, no flank pain Rectal: no pain, no incontinence Musculoskeletal: no neck stiffness, no neck pain, no shooting arm pain Integumentary: no deferred, no rash, no pruritis Neurological: no head injury, no transient paralysis, no paralysis, no numbness , no syncope Psychiatric: no anxiety, no memory loss, no change in sleep habits, no sleep disturbances Endocrine: no cold intolerance, no heat intolerance, no polyphagia Hematologic/Lymphatic: no easy bruising, no easy bleeding Allergic/Immunologic: no urticaria, no allergic rhinitis Exam - Constitutional Vitals: Temp Pulse Resp BP Pulse Ox 98.2 F 98 H 20 128/98 100 04/14/17 05:12 04/14/17 09:39 04/14/17 09:39 04/14/17 05:12 04/14/17 05:12 General appearance: Present: mild distress - EENT Eyes: Present: PERRL ENT: hearing intact - Neck Neck: Present: supple, normal ROM - Respiratory Respiratory effort: labored, other (mild ) Respiratory: negative: wheezing (mild) - Cardiovascular Heart rate: 82 Rhythm: regular Heart Sounds: Present: S1 & S2 - Extremities Extremities: no ischemia, No edema Peripheral Pulses: within normal limits - Abdominal General gastrointestinal: Present: soft, non-tender Male genitourinary: Present: deferred - Rectal Rectal Exam: deferred - Integumentary Integumentary: Present: clear, warm - Musculoskeletal Musculoskeletal: strength equal bilaterally - Psychiatric Psychiatric: appropriate mood/affect - Neurologic Neurologic: CNII-XII intact, moves all extremities - Allied Health Allied health notes reviewed: nursing Results - Labs CBC & Chem 7: 04/14/17 01:29 04/14/17 01:29 Labs: Laboratory Last Values WBC 7.3 K/mm3 (4.5-11.0) 04/14/17 01: RBC 4.46 M/mm3 (3.65-5.03) 04/14/17 01: Hgb 10.8 gm/dl (11.8-15.2) L 04/14/17 01:29 Hct 35.2 % (35.5-45.6) L 04/14/17 01: MCV 79 fl (84-94) L 04/14/17 01:29 MCH 24 pg (28-32) L 04/14/17 01: MCHC 31 % (32-34) L 04/14/17 01:29 RDW 18.7 % (13.2-15.2) H 04/14/17 01:29 Plt Count 156 K/mm3 (140-440) 04/14/17 01:29 Add Manual Diff Complete 04/14/17 01:29 Total Counted 100 04/14/17 01: Seg Neuts % (Manual) 70.0 % (40.0-70.0) 04/14/17 01:29 Band Neutrophils % 0 % 04/14/17 01:29 Lymphocytes % (Manual) 23.0 % (13.4-35.0) 04/14/17 01:29 Reactive Lymphs % (Man) 0 % 04/14/17 01:29 Monocytes % (Manual) 5.0 % (0.0-7.3) 04/14/17 01:29 Eosinophils % (Manual) 1.0 % (0.0-4.3) 04/14/17 01: Basophils % (Manual) 1.0 % (0.0-1.8) 04/14/17 01:29 Metamyelocytes % 0 % 04/14/17 01:29 Myelocytes % 0 % 04/14/17 01:29 Promyelocytes % 0 % 04/14/17 01:29 Blast Cells % 0 % 04/14/17 01:29 Nucleated RBC % Not Reportable 04/14/17 01:29 Seg Neutrophils # Man 5.1 K/mm3 (1.8-7.7) 04/14/17 01:29 Band Neutrophils # 0.0 K/mm3 04/14/17 01:29 Lymphocytes # (Manual) 1.7 K/mm3 (1.2-5.4) 04/14/17 01:29 Abs React Lymphs (Man) 0.0 K/mm3 04/14/17 01:29 Monocytes # (Manual) 0.4 K/mm3 (0.0-0.8) 04/14/17 01:29 Eosinophils # (Manual) 0.1 K/mm3 (0.0-0.4) 04/14/17 01:29 Basophils # (Manual) 0.1 K/mm3 (0.0-0.1) 04/14/17 01:29 Metamyelocytes # 0.0 K/mm3 04/14/17 01:29 Myelocytes # 0.0 K/mm3 04/14/17 01:29 Promyelocytes # 0.0 K/mm3 04/14/17 01:29 Blast Cells # 0.0 K/mm3 04/14/17 01:29 WBC Morphology Not Reportable 04/14/17 01:29 Hypersegmented Neuts Not Reportable 04/14/17 01:29 Hyposegmented Neuts Not Reportable 04/14/17 01:29 Hypogranular Neuts Not Reportable 04/14/17 01:29 Smudge Cells Not Reportable 04/14/17 01:29 Toxic Granulation Not Reportable 04/14/17 01:29 Toxic Vacuolation Not Reportable 04/14/17 01:29 Dohle Bodies Not Reportable 04/14/17 01:29 Pelger-Huet Anomaly Not Reportable 04/14/17 01:29 Freeman Rods Not Reportable 04/14/17 01:29 Platelet Estimate Consistent w auto 04/14/17 01:29 Clumped Platelets Not Reportable 04/14/17 01:29 Plt Clumps, EDTA Not Reportable 04/14/17 01:29 Large Platelets Not Reportable 04/14/17 01:29 Giant Platelets Not Reportable 04/14/17 01:29 Platelet Satelliting Not Reportable 04/14/17 01:29 Plt Morphology Comment Not Reportable 04/14/17 01:29 RBC Morphology Not Reportable 04/14/17 01:29 Dimorphic RBCs Not Reportable 04/14/17 01:29 Polychromasia Not Reportable 04/14/17 01:29 Hypochromasia 1+ 04/14/17 01:29 Poikilocytosis Not Reportable 04/14/17 01:29 Anisocytosis 1+ 04/14/17 01:29 Microcytosis Not Reportable 04/14/17 01:29 Macrocytosis Not Reportable 04/14/17 01:29 Spherocytes Not Reportable 04/14/17 01:29 Pappenheimer Bodies Not Reportable 04/14/17 01:29 Sickle Cells Not Reportable 04/14/17 01:29 Target Cells Not Reportable 04/14/17 01:29 Tear Drop Cells Not Reportable 04/14/17 01:29 Ovalocytes Not Reportable 04/14/17 01:29 Helmet Cells Not Reportable 04/14/17 01:29 [place] Bodies Not Reportable 04/14/17 01:29 [place] Rings Not Reportable 04/14/17 01:29 Doris Cells Not Reportable 04/14/17 01:29 Bite Cells Not Reportable 04/14/17 01:29 Crenated Cell Not Reportable 04/14/17 01:29 Elliptocytes Not Reportable 04/14/17 01:29 Acanthocytes (Spur) Not Reportable 04/14/17 01:29 Rouleaux Not Reportable 04/14/17 01:29 Hemoglobin C Crystals Not Reportable 04/14/17 01:29 Schistocytes Not Reportable 04/14/17 01:29 Malaria parasites Not Reportable 04/14/17 01:29 Mo Bodies Not Reportable 04/14/17 01:29 Hem Pathologist Commnt No 04/14/17 01:29 PT 17.6 Sec. (12.2-14.9) H 04/14/17 10:51 INR 1.37 (0.87-1.13) H 04/14/17 10:51 Sodium 141 mmol/L (137-145) 04/14/17 01:29 Potassium 5.9 mmol/L (3.6-5.0) H 04/14/17 01:29 Chloride 105.7 mmol/L (98-107) 04/14/17 01:29 Carbon Dioxide 18 mmol/L (22-30) L 04/14/17 01:29 Anion Gap 23 mmol/L 04/14/17 01:29 BUN 108 mg/dL (9-20) H 04/14/17 01:29 Creatinine 5.9 mg/dL (0.8-1.5) H 04/14/17 01:29 Estimated GFR 14 ml/min 04/14/17 01:29 BUN/Creatinine Ratio 18.30 % 04/14/17 01:29 Glucose 97 mg/dL (75-100) 04/14/17 01:29 Calcium 8.6 mg/dL (8.4-10.2) 04/14/17 01:29 Troponin T < 0.010 ng/mL (0.00-0.029) 04/14/17 07:32 - Imaging and Cardiology Chest x-ray: image reviewed (small right upper lobe opacity/pneumonia with a stable cardiomegaly and right-sided centeral catheter in the patient with recent pulmonary embolism.) Assessment and Plan Assessment and plan: ASSESSMENT/PLAN Acute on chronic end-stage renal disease (ESRD) needing hemodialysis Patient will have emergent hemodialysis today Nephrology consulted Malfunction dialysis catheter Patient will have temporary vas-cath IR Dr. Atkinson consulted Hyperkalemia Patient given Kayexalate and insulin in the ED Patient will have dialysis that will correct potassium level We will repeat the BMP Closely monitor electrolytes Anemia related to chronic kidney disease Stable at this time Closely monitor CBC Noncompliance Discussed with patient about why the treatment plan and dialysis is important and Patient agreed upon course of action. Metabolic acidosis related to chronic kidney disease Patient will have dialysis today Hypertension urgency We will resume home antihypertensive meds Hydralazine IV as needed for blood pressure systolic>160 Tobacco dependence Discussed the patient the importance of quitting smoking and patient agreed upon course of action Hypercoagulable with history of pulmonary embolism. Patient he had Right side Pulmonary embolism. he has supposed to be on Coumadin but has been non-compliant. Current INR 1.37 we will start Coumadin PO daily. Closely monitor PT, PTT and INR VET/GI Prophylaxis Heaprin/Pepcid Full code <SUSI DAIGLE - Last Filed: 04/14/17 13:01> History of Present Illness Date of admission: 04/14/17 09:55 Medications and Allergies Active Meds: Active Medications Acetaminophen (Tylenol) 650 mg PO Q4H PRN PRN Reason: Pain MILD(1-3)/Fever >100.5/PARDO Albuterol (Proventil) 2.5 mg IH Q4HRT PRN PRN Reason: Shortness Of Breath Alteplase, Recombinant (Cathflo) 2 mg IV TALIA PRN PRN Reason: LINE FLUSH Bisacodyl (Dulcolax) 10 mg AR QDAY PRN PRN Reason: Constipation unrelieved by MOM Heparin Sodium (Porcine) (Heparin 10,000 Units/10 Ml) 1,000 unit IV TALIA PRN PRN Reason: hemodialysis Heparin Sodium (Porcine) (Heparin) 5,000 unit IV TALIA PRN PRN Reason: hemodialysis Sodium Chloride (Nacl 0.9%) 100 mls @ 999 mls/hr IV TALIA PRN PRN Reason: Hypotension Sodium Chloride (Nacl 0.9%) 100 mls @ 999 mls/hr IV TALIA PRN PRN Reason: Hypotension Ondansetron HCl (Zofran) 4 mg IV Q4H PRN PRN Reason: N/V unrelieved by Reglan Warfarin Sodium (Coumadin) 7.5 mg PO DAILY@1700 YUN PRN Reason: Protocol Exam - Constitutional Vitals: Temp Pulse Resp BP Pulse Ox 98.1 F 82 18 151/113 97 04/14/17 11:15 04/14/17 11:35 04/14/17 11:15 04/14/17 11:35 04/14/17 11:00 Results - Labs CBC & Chem 7: 04/14/17 01:29 04/14/17 01:29 Labs: Laboratory Last Values WBC 7.3 K/mm3 (4.5-11.0) 04/14/17 01:29 RBC 4.46 M/mm3 (3.65-5.03) 04/14/17 01:29 Hgb 10.8 gm/dl (11.8-15.2) L 04/14/17 01:29 Hct 35.2 % (35.5-45.6) L 04/14/17 01: MCV 79 fl (84-94) L 04/14/17 01: MCH 24 pg (28-32) L 04/14/17 01: MCHC 31 % (32-34) L 04/14/17 01: RDW 18.7 % (13.2-15.2) H 04/14/17 01:29 Plt Count 156 K/mm3 (140-440) 04/14/17 01:29 Add Manual Diff Complete 04/14/17 01:29 Total Counted 100 04/14/17 01:29 Seg Neuts % (Manual) 70.0 % (40.0-70.0) 04/14/17 01:29 Band Neutrophils % 0 % 04/14/17 01:29 Lymphocytes % (Manual) 23.0 % (13.4-35.0) 04/14/17 01:29 Reactive Lymphs % (Man) 0 % 04/14/17 01:29 Monocytes % (Manual) 5.0 % (0.0-7.3) 04/14/17 01: Eosinophils % (Manual) 1.0 % (0.0-4.3) 04/14/17 01: Basophils % (Manual) 1.0 % (0.0-1.8) 04/14/17 01:29 Metamyelocytes % 0 % 04/14/17 01:29 Myelocytes % 0 % 04/14/17 01:29 Promyelocytes % 0 % 04/14/17 01:29 Blast Cells % 0 % 04/14/17 01:29 Nucleated RBC % Not Reportable 04/14/17 01:29 Seg Neutrophils # Man 5.1 K/mm3 (1.8-7.7) 04/14/17 01:29 Band Neutrophils # 0.0 K/mm3 04/14/17 01:29 Lymphocytes # (Manual) 1.7 K/mm3 (1.2-5.4) 04/14/17 01:29 Abs React Lymphs (Man) 0.0 K/mm3 04/14/17 01:29 Monocytes # (Manual) 0.4 K/mm3 (0.0-0.8) 04/14/17 01:29 Eosinophils # (Manual) 0.1 K/mm3 (0.0-0.4) 04/14/17 01:29 Basophils # (Manual) 0.1 K/mm3 (0.0-0.1) 04/14/17 01:29 Metamyelocytes # 0.0 K/mm3 04/14/17 01:29 Myelocytes # 0.0 K/mm3 04/14/17 01:29 Promyelocytes # 0.0 K/mm3 04/14/17 01:29 Blast Cells # 0.0 K/mm3 04/14/17 01:29 WBC Morphology Not Reportable 04/14/17 01:29 Hypersegmented Neuts Not Reportable 04/14/17 01:29 Hyposegmented Neuts Not Reportable 04/14/17 01:29 Hypogranular Neuts Not Reportable 04/14/17 01:29 Smudge Cells Not Reportable 04/14/17 01:29 Toxic Granulation Not Reportable 04/14/17 01:29 Toxic Vacuolation Not Reportable 04/14/17 01:29 Dohle Bodies Not Reportable 04/14/17 01:29 Pelger-Huet Anomaly Not Reportable 04/14/17 01:29 Freeman Rods Not Reportable 04/14/17 01:29 Platelet Estimate Consistent w auto 04/14/17 01:29 Clumped Platelets Not Reportable 04/14/17 01:29 Plt Clumps, EDTA Not Reportable 04/14/17 01:29 Large Platelets Not Reportable 04/14/17 01:29 Giant Platelets Not Reportable 04/14/17 01:29 Platelet Satelliting Not Reportable 04/14/17 01:29 Plt Morphology Comment Not Reportable 04/14/17 01:29 RBC Morphology Not Reportable 04/14/17 01:29 Dimorphic RBCs Not Reportable 04/14/17 01:29 Polychromasia Not Reportable 04/14/17 01:29 Hypochromasia 1+ 04/14/17 01:29 Poikilocytosis Not Reportable 04/14/17 01:29 Anisocytosis 1+ 04/14/17 01:29 Microcytosis Not Reportable 04/14/17 01:29 Macrocytosis Not Reportable 04/14/17 01:29 Spherocytes Not Reportable 04/14/17 01:29 Pappenheimer Bodies Not Reportable 04/14/17 01:29 Sickle Cells Not Reportable 04/14/17 01:29 Target Cells Not Reportable 04/14/17 01:29 Tear Drop Cells Not Reportable 04/14/17 01:29 Ovalocytes Not Reportable 04/14/17 01:29 Helmet Cells Not Reportable 04/14/17 01:29 Justice-[place]valon Bodies Not Reportable 04/14/17 01:29 [place] Rings Not Reportable 04/14/17 01:29 [place] Cells Not Reportable 04/14/17 01:29 Bite Cells Not Reportable 04/14/17 01:29 Crenated Cell Not Reportable 04/14/17 01:29 Elliptocytes Not Reportable 04/14/17 01:29 Acanthocytes (Spur) Not Reportable 04/14/17 01:29 Rouleaux Not Reportable 04/14/17 01:29 Hemoglobin C Crystals Not Reportable 04/14/17 01:29 Schistocytes Not Reportable 04/14/17 01:29 Malaria parasites Not Reportable 04/14/17 01:29 Mo Bodies Not Reportable 04/14/17 01:29 Hem Pathologist Commnt No 04/14/17 01:29 PT 17.6 Sec. (12.2-14.9) H 04/14/17 10:51 INR 1.37 (0.87-1.13) H 04/14/17 10:51 Sodium 141 mmol/L (137-145) 04/14/17 01:29 Potassium 5.9 mmol/L (3.6-5.0) H 04/14/17 01:29 Chloride 105.7 mmol/L (98-107) 04/14/17 01:29 Carbon Dioxide 18 mmol/L (22-30) L 04/14/17 01:29 Anion Gap 23 mmol/L 04/14/17 01:29 BUN 108 mg/dL (9-20) H 04/14/17 01:29 Creatinine 5.9 mg/dL (0.8-1.5) H 04/14/17 01:29 Estimated GFR 14 ml/min 04/14/17 01:29 BUN/Creatinine Ratio 18.30 % 04/14/17 01:29 Glucose 97 mg/dL (75-100) 04/14/17 01:29 Calcium 8.6 mg/dL (8.4-10.2) 04/14/17 01:29 Troponin T < 0.010 ng/mL (0.00-0.029) 04/14/17 07:32 Assessment and Plan Assessment and plan: I have personally seen and examined the patient. I reviewed the Nurse Practitioner's note and agree with the assessment and plan with the following additions/corrections Chest x-ray shows right opacity, nonspecific, he's afebrile, no white blood cell count unlikely pneumonia but will order CT of the chest, may be related to his right chest wall catheter for hemodialysis, vascular [employer] [facility]am notified He did receive calcium for the hyperkalemia
[2017-04-14] MEDS ORDERED: HEPARIN SUB-Q SCH (12:00)
[2017-04-14] MEDS ORDERED: NACL 0.9 (PRIMING MACHINE ONLY DIALYSIS) MC ONE (12:29)
[2017-04-14] MEDS ORDERED: CATAPRES PO PRN (15:18)
--- NOTE | 2017-04-14 18:12 | Cat Scan Report ---
FINAL REPORT EXAM: CT CHEST WO CON HISTORY: Pneumonia TECHNIQUE: Noncontrast serial axial images through the chest with coronal and sagittal reconstruction PRIORS: CT scan of the chest from 02/02/2017 FINDINGS: There is an area of consolidation in the posterior aspect of right upper lobe that measures approximately 2.5 x 3.1 centimeters in axial dimension. This is similar in appearance to the prior study. There is linear density in lateral aspect of the right upper lobe which appears similar to the prior study. Nodular focus in the medial aspect of the right middle lobe is no longer identified. There is an area of consolidation inferior lateral aspect of the right middle lobe that measures 2.9 centimeters in diameter. There is a smaller mixed density focus medial to this. There are areas of increased airspace opacity in the dependent portion of the lungs, bilaterally. The heart measures approximately 17.4 centimeters in length. Central venous catheter is noted. No mediastinal adenopathy is identified. No gross abnormality is seen in the visualized portion of the abdomen. No acute osseous abnormality is identified. IMPRESSION: 1. Cardiomegaly. 2. There is increased airspace opacity in the dependent portion of the lung bases, bilaterally. This may be secondary to edema and or infection. 3. Spiculated nodular lesion is seen in the posterior aspect of the right upper lobe. This appears similar to the prior study. This could be secondary to scarring, but neoplastic process is not excluded, and continued follow-up is recommended. 4. Nodular foci in the inferior aspect of the lateral portion of the right middle lobe may be secondary to scarring or atelectasis, but infection or neoplastic process is not excluded. This can also be reassessed at follow-up.
[2017-04-14] MEDS: COUMADIN PO SCH (18:43)
--- NOTE | 2017-04-14 20:13 | Consultation ---
History of Present Illness - Reason for Consult Consult date: 04/14/17 Renal failure, hyperkalemia - History of Present Illness This 31 yr old AA male with ESRD,HTN presents with weakness, achy all over, SOB. Pt had dialysis catheter at [facility] which has not been working well.Pt goes to [facility] on //. Last Friday had partial dialysis due to catheter malfunction, Friday he did not go to dialysis. He had previous AVF in left arm which have not worked. He is followed by . Few months ago- was scheduled to get AVF-but not done even before he got anesthesia in the over-pt had cardiac issues requiring ICU admission at [facility]. Pt has been missing hemodialysis treatments Past History Past Medical History: ESRD, hypertension, pulmonary embolism Past Surgical History: No surgical history, Other (right chest Vas-cath) Social history: single, lives with family, smoking Family history: CAD, hypertension Medications and Allergies Allergies Allergy/AdvReac Type Severity Reaction Status Date / Time Penicillins Allergy Unknown Verified 02/01/17 21:39 Home Medications Medication Instructions Recorded Confirmed Last Taken Type Calcium Acetate 667 mg PO DAILY 03/13/17 04/14/17 Unknown History Carvedilol [Coreg] 25 mg PO BID 03/13/17 04/14/17 Unknown History Furosemide [Lasix TAB] 40 mg PO QDAY 03/13/17 04/14/17 Unknown History Rosuvastatin Calcium 20 mg PO DAILY 03/13/17 04/14/17 Unknown History Warfarin [Coumadin] 7.5 mg PO DAILY@1700 #14 tablet 03/14/17 04/14/17 Unknown Rx Active Meds: Active Medications Acetaminophen (Tylenol) 650 mg PO Q4H PRN PRN Reason: Pain MILD(1-3)/Fever >100.5/PARDO Albuterol (Proventil) 2.5 mg IH Q4HRT PRN PRN Reason: Shortness Of Breath Alteplase, Recombinant (Cathflo) 2 mg IV TALIA PRN PRN Reason: LINE FLUSH Last Admin: 04/14/17 11:40 Dose: 2 mg Bisacodyl (Dulcolax) 10 mg AL QDAY PRN PRN Reason: Constipation unrelieved by MOM Clonidine HCl (Catapres) 0.1 mg PO TALIA PRN PRN Reason: Hypertension Last Admin: 04/14/17 15:38 Dose: 0.1 mg Heparin Sodium (Porcine) (Heparin 10,000 Units/10 Ml) 1,000 unit IV TALIA PRN PRN Reason: hemodialysis Last Admin: 04/14/17 14:45 Dose: 1,000 unit Heparin Sodium (Porcine) (Heparin) 5,000 unit IV TALIA PRN PRN Reason: hemodialysis Last Admin: 04/14/17 18:22 Dose: 5,000 unit Vancomycin HCl (Vancomycin/Ns 1 Gm/250 Ml) 1 gm in 250 mls @ 167.007 mls/hr IV PREOP NR PRN Reason: Protocol Stop: 04/15/17 23:59 Sodium Chloride (Nacl 0.9%) 100 mls @ 999 mls/hr IV TALIA PRN PRN Reason: Hypotension Ondansetron HCl (Zofran) 4 mg IV Q4H PRN PRN Reason: N/V unrelieved by Reglan Warfarin Sodium (Coumadin) 7.5 mg PO DAILY@1700 YUN PRN Reason: Protocol Last Admin: 04/14/17 18:43 Dose: 7.5 mg Review of Systems All systems: negative Constitutional: fatigue, weakness Cardiovascular: shortness of breath Musculoskeletal: other (back pain, muscle pain/achy all over requesting pain medicine) Exam - Constitutional Vitals: Temp Pulse Resp BP Pulse Ox 98.2 F 96 H 20 142/108 95 04/14/17 17:33 04/14/17 17:33 04/14/17 17:33 04/14/17 17:33 04/14/17 19:40 General appearance: Present: no acute distress - EENT ENT: clear oral mucosa - Neck Neck: Present: supple - Respiratory Respiratory: bilateral: diminished - Cardiovascular Rhythm: regular Heart Sounds: Present: systolic murmur - Extremities Extremity abnormal: other (no edema. Right IJ catheter, no bruit over AVF on left arm) Results - Labs CBC & Chem 7: 04/14/17 01:29 04/14/17 01:29 Labs: Abnormal lab results 04/14/17 Range/Units 10:51 PT 17.6 H (12.2-14.9) Sec. INR 1.37 H (0.87-1.13) Assessment and Plan - Patient Problems (1) Uremia Current Visit: Yes Status: Acute (2) ESRD needing dialysis Current Visit: Yes Status: Acute Plan to address problem: HD ordered using catheter. Pt was reported to have malfunctioning catheter-did not finish full dialysis, vascular surgery consult requested to replace the catheter. Advised pt on low K diet. Counseling done on missing dialysis. (3) Vascular catheter dysfunction Current Visit: Yes Status: Acute Qualifiers: Encounter type: initial encounter Qualified Code(s): T82.41XA - Breakdown ( mechanical) of vascular dialysis catheter, initial encounter (4) Metabolic acidosis Current Visit: Yes Status: Acute (5) Hyperkalemia Current Visit: No Status: Acute Plan to address problem: kayexalate as ordered (6) Pulmonary embolism on right Current Visit: No Status: Chronic (7) Anemia in CKD (chronic kidney disease) Current Visit: Yes Status: Acute Qualifiers: Chronic kidney disease stage: C (8) Noncompliance with renal dialysis Current Visit: Yes Status: Acute
[2017-04-14] MEDS: TYLENOL PO PRN (22:29)
[2017-04-15] MEDS ORDERED: VANCOMYCIN/NS 1 GM/250 ML 1 GM/250 ML BAG IV NR (07:00)
[2017-04-15 08:13] LABS: INR 1.44 (0.87-1.13)
--- NOTE | 2017-04-15 08:40 | Admit Criteria Form ---
Admission Criteria Documentation: RENAL FAILURE, CHRONIC Clinical Indications for Admission to Inpatient Care (Place 'X' for any and all applicable criteria): Admission is indicated for ANY ONE of the following (1)(2)(3)(4)(5): [X ]I. Inpatient admission required rather than observation care (Use Renal Failure, Chronic: Observation Care Criteria as appropriate) because of ANY ONE of the following: [ ]a) Volume overload or uremic symptoms (eg, clinically significant pulmonary edema, hypertension, pericarditis, acidosis) too severe for, or not responsive (eg, for over 24 hours) to emergency department or observation care dialysis or treatment regimen (11) [ ]b) Hemodynamic instability that is severe or persistent [ ]c) Respiratory distress that is severe or persistent (11) [ ]d) Clinically significant electrolyte abnormality that requires inpatient care (eg,hyperkalemia with severe ECG findings)[B] [ ]e) Supplement O2 or respiratory therapy for over 24hrs that is performable only in acute inpatient setting [ ]f) Continuous IV infusion of anticoagulation, platelet inhibitor, vasoactive, or Antiarrhythmic medication (15), [ ]g) Pulmonary artery catheter monitoring [ ]h) Temporary pacemaker placement [ ]i) Emergent pericardiocentesis [ X]j) Other condition, treatment or monitoring requiring inpatient admission [ ]II. Unexplained syncope [A] [ ]III. Recurrent seizures [ ]IV. Severe infections not treatable in outpatient setting (eg, peritonitis)(9 ) [ ]V. Cardiac arrhythmias of immediate concern [ ]. Encephalopathy [ ]VII.Bleeding abnormalities (eg, platelet dysfunction) with active (eg, gastrointestinal) bleeding Extended stay beyond goal length of stay may be needed for (3)(4)(35)(36): [ ]a) Continuing uremic complications [ ]b) Comorbidities or complications The original [employer] content created by [employer] has been revised. The portions of the content which have been revised are identified through the use of italic text or in bold, and [facility] has neither reviewed nor approved the modified material. All other unmodified content is copyright [employer]. Please see references footnoted in the original [facility] edition 2016 Admission Criteria Met: Yes
--- NOTE | 2017-04-15 09:17 | Progress Note ---
Assessment and Plan - Patient Problems (1) Uremia Current Visit: Yes Status: Acute (2) ESRD needing dialysis Current Visit: Yes Status: Acute Plan to address problem: malfunctioning catheter-pt to get new catheter today. K- high- Kayexalate as ordered.HD on M/W/F (3) Vascular catheter dysfunction Current Visit: Yes Status: Acute Qualifiers: Encounter type: initial encounter Qualified Code(s): T82.41XA - Breakdown ( mechanical) of vascular dialysis catheter, initial encounter (4) Metabolic acidosis Current Visit: Yes Status: Acute (5) Hyperkalemia Current Visit: No Status: Acute (6) Pulmonary embolism on right Current Visit: No Status: Chronic (7) Anemia in CKD (chronic kidney disease) Current Visit: Yes Status: Acute Qualifiers: Chronic kidney disease stage: C (8) Noncompliance with renal dialysis Current Visit: Yes Status: Acute Subjective Date of service: 04/15/17 Interval history: pt is alert, oriented, waiting to get new dialysis catheter. C/O being hungry Objective - Vital Signs Vital signs: Vital Signs - 12hr 04/14/17 22:00 Temperature 97.6 F Pulse Rate [ 98 H Right] Respiratory 22 Rate Blood Pressure 121/86 [Right Arm] O2 Sat by Pulse 100 Oximetry - General Appearance General appearance: other (thin built) EENT: mucous membranes dry Neck: no JVD Respiratory: Present: Clear to Ascultation Cardiology: regular Gastrointestinal: normoactive bowel sounds Neurologic: alert and oriented x3 Psychiatric: mood/affect appropriate, cooperative - Lab 04/14/17 01:29 04/15/17 17:28 Most recent lab results Calcium 8.6 mg/dL (8.4-10.2) 04/14/17 01:29
[2017-04-15] MEDS ORDERED: NACL 0.9% 100 ML IV PRN (10:26)
--- NOTE | 2017-04-15 10:28 | Discharge Summary ---
Providers - Providers Date of Admission: 04/14/17 09:55 Date of discharge: 04/15/17 Attending physician: GILBERT OLIVA MD Primary care physician: GATO REGAN Hospitalization Reason for admission: permacath malfunction Condition: Stable Hospital course: Patient is a 31 years old male with past medical History of HTN, ESRD on hemodialysis MWF and PE, who presents to emergency department today with complains of generalized body ache and nausea. Patient also reported his Vas- cath has not been working since last wensday (04/09/17). Patient states he had a partial treatment that day because of dysfunctional Vas-cath, no dialysis since then. Patient denies fever, shortness of breath,chest pain, nausea and vomiting. On admission the patient was seen by vascular there was replacement of the right permacath. Hyperkalemia was noted which is suspected to resolve with dialysis. The patient subsequently had dialysis after this. He is clinically stable at this point for discharge I did discuss the findings on the chest with the patient I recommend that he follows up with his primary care physician and also with the pole climber. The patient verbalized understanding. All the patient's medications were renewed. Patient's request. * Acute on chronic end-stage renal disease (ESRD) needing hemodialysis * Malfunction dialysis catheter * Hyperkalemia * Anemia related to chronic kidney disease * Noncompliance * Metabolic acidosis related to chronic kidney disease * Hypertension urgency * Tobacco dependence * Hypercoagulable state. * CHEST OPACITY * Secondary hyperparathyroidism Disposition: TO HOME OR SELFCARE Time spent for discharge: 35 mins Core Measure Documentation - Palliative Care Palliative Care/ Comfort Measures: Not Applicable - Core Measures Any of the following diagnoses?: none - VTE Discharge Requirements Deep Vein Thrombosis/Pulmonary Embolism Present on Admission: No Exam - Physical Exam Narrative exam: VITAL SIGNS: Reviewed. GENERAL: The patient appeared well nourished and normally developed. Vital signs as documented. HEAD: No signs of head trauma. EYES: Pupils are equal. Extraocular motions intact. EARS: Hearing grossly intact. MOUTH: Oropharynx is normal. NECK: No adenopathy, no JVD. CHEST: Chest with clear breath sounds bilaterally. No wheezes, rales, or rhonchi. CARDIAC: Regular rate and rhythm. S1 and S2, without murmurs, gallops, or rubs. VASCULAR: No Edema. Peripheral pulses normal and equal in all extremities. ABDOMEN: Soft, without detectable tenderness. No sign of distention. No rebound or guarding, and no masses palpated. Bowel Sounds normal. MUSCULOSKELETAL: Good range of motion of all major joints. Extremities without clubbing, cyanosis or edema. NEUROLOGIC EXAM: Alert and oriented x 3. No focal sensory or strength deficits. Speech normal. Follows commands. PSYCHIATRIC: Mood normal. SKIN: No rash or lesions. - Constitutional Vitals: Temp Pulse Resp BP Pulse Ox 98.0 F 92 H 16 131/107 100 04/15/17 08:03 04/15/17 08:03 04/15/17 08:03 04/15/17 08:03 04/15/17 08:03 Plan Activity: advance as tolerated, fall precautions Diet: renal Special Instructions: record daily BP diary Additional Instructions: Must be compliant, must follow with PCP. must check inr with PCP in 2-3 days. Must follow with pole climber to re-evaluate chest ct findings including nodules and lesion. Must have repeat study in 4-6 weeks, this can be arranged by the PCP or pole climber. Follow up with: GATO REGAN MD [Primary Care Provider] - 3-5 Days EMELIA MICHELE MD [Staff Physician] - 7 Days Forms: Warfarin Discharge Instruction Prescriptions: Calcium Acetate 667 mg PO DAILY #30 capsule Carvedilol [Coreg] 25 mg PO BID #60 tablet Furosemide [Lasix TAB] 40 mg PO QDAY #30 tablet Rosuvastatin Calcium 20 mg PO DAILY #30 tablet Warfarin [Coumadin] 7.5 mg PO DAILY@1700 #14 tablet
[2017-04-15] MEDS: COUMADIN PO SCH (17:07)
--- NOTE | 2017-04-15 17:15 | Progress Note ---
Assessment and Plan Assessment and plan: Patient is a 31 years old male with past medical History of HTN, ESRD on hemodialysis MWF and PE, who presents to emergency department today with complains of generalized body ache and nausea. Patient also reported his Vas- cath has not been working since last wensday (04/09/17). Patient states he had a partial treatment that day because of dysfunctional Vas-cath, no dialysis since then. Patient denies fever, shortness of breath,chest pain, nausea and vomiting. Acute on chronic end-stage renal disease (ESRD) needing hemodialysis * Check K+ * Continue Dialysis per Nephrology Malfunction dialysis catheter * Exchange of right permacath planned for today Hyperkalemia * Patient given Kayexalate and insulin in the ED * Patient will have dialysis that will correct potassium level * We will repeat the BMP * Closely monitor electrolytes Anemia related to chronic kidney disease * Stable at this time * Closely monitor CBC Noncompliance * Discussed with patient about why the treatment plan and dialysis is important and Patient agreed upon course of action. * Will renew all his meds. Metabolic acidosis related to chronic kidney disease * Correct with dialysis Hypertension urgency * Resolved. continue current meds Tobacco dependence * 15 MINS counselling provided. patient verbalized understanding Hypercoagulable state. * Patient he had Right side Pulmonary embolism. he has supposed to be on Coumadin but has been non-compliant. * Current INR 1.37 we will start Coumadin PO daily. * Closely monitor PT, PTT and INR CHEST OPACITY * Multiple nodularity noted in different area. will recommend outpatient follow up with pulmonary. I have discussed with the patient, He also needs repeat study in 4-6 weeks to ensure resolution. He remains afibrile. DVT/GI Prophylaxis * Heaprin/Pepcid * Full code History Interval history: Patient seen and examined in no acute distress. awaiting Dialysis catheter repair. No adverse event reported by nursing staff. Hospitalist Physical - Physical exam Narrative exam: VITAL SIGNS: Reviewed. GENERAL: The patient appeared well nourished and normally developed. Vital signs as documented. HEAD: No signs of head trauma. EYES: Pupils are equal. Extraocular motions intact. EARS: Hearing grossly intact. MOUTH: Oropharynx is normal. NECK: No adenopathy, no JVD. CHEST: Chest with clear breath sounds bilaterally. No wheezes, rales, or rhonchi. CARDIAC: Regular rate and rhythm. S1 and S2, without murmurs, gallops, or rubs. VASCULAR: No Edema. Peripheral pulses normal and equal in all extremities. ABDOMEN: Soft, without detectable tenderness. No sign of distention. No rebound or guarding, and no masses palpated. Bowel Sounds normal. MUSCULOSKELETAL: Good range of motion of all major joints. Extremities without clubbing, cyanosis or edema. NEUROLOGIC EXAM: Alert and oriented x 3. No focal sensory or strength deficits. Speech normal. Follows commands. PSYCHIATRIC: Mood normal. SKIN: No rash or lesions. - Constitutional Vitals: Temp Pulse Resp BP Pulse Ox 97.6 F 72 16 134/108 94 04/15/17 16:34 04/15/17 16:34 04/15/17 16:34 04/15/17 16:34 04/15/17 16:34 General appearance: Present: no acute distress Results - Labs CBC & Chem 7: 04/14/17 01:29 04/15/17 17:28 Labs: Laboratory Last Values WBC 7.3 K/mm3 (4.5-11.0) 04/14/17 01:29 RBC 4.46 M/mm3 (3.65-5.03) 04/14/17 01:29 Hgb 10.8 gm/dl (11.8-15.2) L 04/14/17 01:29 Hct 35.2 % (35.5-45.6) L 04/14/17 01:29 MCV 79 fl (84-94) L 04/14/17 01:29 MCH 24 pg (28-32) L 04/14/17 01: MCHC 31 % (32-34) L 04/14/17 01:29 RDW 18.7 % (13.2-15.2) H 04/14/17 01:29 Plt Count 156 K/mm3 (140-440) 04/14/17 01:29 Add Manual Diff Complete 04/14/17 01:29 Total Counted 100 04/14/17 01:29 Seg Neuts % (Manual) 70.0 % (40.0-70.0) 04/14/17 01:29 Band Neutrophils % 0 % 04/14/17 01:29 Lymphocytes % (Manual) 23.0 % (13.4-35.0) 04/14/17 01:29 Reactive Lymphs % (Man) 0 % 04/14/17 01:29 Monocytes % (Manual) 5.0 % (0.0-7.3) 04/14/17 01:29 Eosinophils % (Manual) 1.0 % (0.0-4.3) 04/14/17 01:29 Basophils % (Manual) 1.0 % (0.0-1.8) 04/14/17 01:29 Metamyelocytes % 0 % 04/14/17 01:29 Myelocytes % 0 % 04/14/17 01:29 Promyelocytes % 0 % 04/14/17 01:29 Blast Cells % 0 % 04/14/17 01:29 Nucleated RBC % Not Reportable 04/14/17 01:29 Seg Neutrophils # Man 5.1 K/mm3 (1.8-7.7) 04/14/17 01:29 Band Neutrophils # 0.0 K/mm3 04/14/17 01:29 Lymphocytes # (Manual) 1.7 K/mm3 (1.2-5.4) 04/14/17 01:29 Abs React Lymphs (Man) 0.0 K/mm3 04/14/17 01:29 Monocytes # (Manual) 0.4 K/mm3 (0.0-0.8) 04/14/17 01:29 Eosinophils # (Manual) 0.1 K/mm3 (0.0-0.4) 04/14/17 01:29 Basophils # (Manual) 0.1 K/mm3 (0.0-0.1) 04/14/17 01:29 Metamyelocytes # 0.0 K/mm3 04/14/17 01:29 Myelocytes # 0.0 K/mm3 04/14/17 01:29 Promyelocytes # 0.0 K/mm3 04/14/17 01:29 Blast Cells # 0.0 K/mm3 04/14/17 01:29 WBC Morphology Not Reportable 04/14/17 01:29 Hypersegmented Neuts Not Reportable 04/14/17 01:29 Hyposegmented Neuts Not Reportable 04/14/17 01:29 Hypogranular Neuts Not Reportable 04/14/17 01:29 Smudge Cells Not Reportable 04/14/17 01:29 Toxic Granulation Not Reportable 04/14/17 01:29 Toxic Vacuolation Not Reportable 04/14/17 01:29 Dohle Bodies Not Reportable 04/14/17 01:29 Pelger-Huet Anomaly Not Reportable 04/14/17 01:29 Freeman Rods Not Reportable 04/14/17 01:29 Platelet Estimate Consistent w auto 04/14/17 01:29 Clumped Platelets Not Reportable 04/14/17 01:29 Plt Clumps, EDTA Not Reportable 04/14/17 01:29 Large Platelets Not Reportable 04/14/17 01:29 Giant Platelets Not Reportable 04/14/17 01:29 Platelet Satelliting Not Reportable 04/14/17 01:29 Plt Morphology Comment Not Reportable 04/14/17 01:29 RBC Morphology Not Reportable 04/14/17 01:29 Dimorphic RBCs Not Reportable 04/14/17 01:29 Polychromasia Not Reportable 04/14/17 01:29 Hypochromasia 1+ 04/14/17 01:29 Poikilocytosis Not Reportable 04/14/17 01:29 Anisocytosis 1+ 04/14/17 01:29 Microcytosis Not Reportable 04/14/17 01:29 Macrocytosis Not Reportable 04/14/17 01:29 Spherocytes Not Reportable 04/14/17 01:29 Pappenheimer Bodies Not Reportable 04/14/17 01:29 Sickle Cells Not Reportable 04/14/17 01:29 Target Cells Not Reportable 04/14/17 01:29 Tear Drop Cells Not Reportable 04/14/17 01:29 Ovalocytes Not Reportable 04/14/17 01:29 Helmet Cells Not Reportable 04/14/17 01:29 [place] Bodies Not Reportable 04/14/17 01:29 Mitchells Rings Not Reportable 04/14/17 01:29 Doris Cells Not Reportable 04/14/17 01:29 Bite Cells Not Reportable 04/14/17 01:29 Crenated Cell Not Reportable 04/14/17 01:29 Elliptocytes Not Reportable 04/14/17 01:29 Acanthocytes (Spur) Not Reportable 04/14/17 01:29 Rouleaux Not Reportable 04/14/17 01:29 Hemoglobin C Crystals Not Reportable 04/14/17 01:29 Schistocytes Not Reportable 04/14/17 01:29 Malaria parasites Not Reportable 04/14/17 01:29 Mo Bodies Not Reportable 04/14/17 01:29 Hem Pathologist Commnt No 04/14/17 01:29 PT 18.3 Sec. (12.2-14.9) H 04/15/17 07:25 INR 1.44 (0.87-1.13) H 04/15/17 07:25 Sodium 141 mmol/L (137-145) 04/14/17 01:29 Potassium 5.9 mmol/L (3.6-5.0) H 04/14/17 01:29 Chloride 105.7 mmol/L (98-107) 04/14/17 01:29 Carbon Dioxide 18 mmol/L (22-30) L 04/14/17 01:29 Anion Gap 23 mmol/L 04/14/17 01:29 BUN 108 mg/dL (9-20) H 04/14/17 01:29 Creatinine 5.9 mg/dL (0.8-1.5) H 04/14/17 01:29 Estimated GFR 14 ml/min 04/14/17 01:29 BUN/Creatinine Ratio 18.30 % 04/14/17 01:29 Glucose 97 mg/dL (75-100) 04/14/17 01:29 Calcium 8.6 mg/dL (8.4-10.2) 04/14/17 01:29 Troponin T < 0.010 ng/mL (0.00-0.029) 04/14/17 07:32
[2017-04-15 18:01] LABS: BUN/Creatinine Ratio 15.8; Calcium 8.9 mg/dL (8.4-10.2)
[2017-04-15 18:04] LABS: Potassium 6.1 mmol/L (3.6-5.0)
[2017-04-15] MEDS ORDERED: HEPARIN/NS 5000 UNIT/500ML(CATH LAB) 500 ML IR ONE (19:44)
[2017-04-15] MEDS ORDERED: HEPARIN ONE (19:44)
[2017-04-15] MEDS ORDERED: XYLOCAINE 1%/ EPI 1:100,000 INFILTRATI ONE (19:45)
--- NOTE | 2017-04-15 19:48 | Operative Report ---
Operative Report Operative Report: Date of Procedure: 04/15/2017 Pre-operative Diagnosis: Complications of Dialysis Access Post-operative Diagnosis: Same Procedure(s): 1. Exchange of Right Internal Jugular Permacath to 23 cm Bard GlidePath Permacath Over Wire 2. Radiologic Supervision with Interpretation Surgeon: Ty Arreaga M.D. Mail Order Clerk: None Anesthesia: Local and IV sedation EBL: Minimal Counts: Correct Complications: None Condition: Stable Findings: Successful change of right internal jugular permacath with distal tip in the right atrium. Specimen: Indwelling permacath discarded. Indication: The patient is a 31-year-old male with a history of end-stage renal disease currently on hemodialysis through a right internal jugular permacath. They have been unable to use the permacath was in need of exchange. He was given the risks, benefits, and alternative procedures and consented to the procedure. Description of Procedure: The patient was brought to the operations label clerk and laid in supine position. After he was adequate sedated his right chest indwelling catheter were prepped and draped in normal sterile fashion. A 0.035 J-wire was advanced through the permacath into the central venous system under fluoroscopy. The exit site was then anesthetized with lidocaine and a hemostat was used to bluntly dissect the cuff away from the surrounding tissue. The catheter was then removed leaving the wire in place. The new permacath was then inserted by Seldinger technique placing the distal tip in the right atrium. Both ports were then aspirated and flushed and primed with heparin. A 2-0 Prolene was then used to close entrance site and secure the catheter in place. Final fluoroscopy demonstrated the catheter was in excellent position without any evidence of pneumothorax. The catheter was then dressed sterilely. The patient tolerated the procedure well. All sponge, needle, instrument counts were correct. The patient was taken to dialysis in stable condition.
[2017-04-15] MEDS: VERSED ONE ×2 (19:55→20:02)
[2017-04-15] MEDS: SUBLIMAZE ONE ×2 (19:55→20:02)
[2017-04-15] MEDS ORDERED: KIONEX PO ONE (20:00)
[2017-04-15] MEDS ORDERED: CLEOCIN 600 MG/50 mL 600 MG/50 ML BAG IV NR (21:00)
[2017-04-16] MEDS: TYLENOL PO PRN ×2 (02:18→06:32)
[2017-04-16 07:54] LABS: INR 1.52 (0.87-1.13)
[2017-04-16 08:17] LABS: BUN/Creatinine Ratio 15.19; Calcium 8.4 mg/dL (8.4-10.2); Chloride 103.2 mmol/L (98-107); Potassium 4.4 mmol/L (3.6-5.0)
[2017-04-16] MEDS ORDERED: MORPHINE IV ONE (09:06)
--- NOTE | 2017-04-16 09:42 | Progress Note ---
Assessment and Plan Impression: * End stage renal disease on hemodialysis * Malfunctioning permcath - s/p exchange April 15 * Hyperkalemia * Anemia secondary to ESRD * Secondary hyperparathyroidism Plan" * Hemodialysis today. UF as tolerated * Renal diet * Epogen goal Hb 10-12 * Note plans for d/c - stable from a renal standpoint after dialysis today Subjective Date of service: 04/16/17 Interval history: Patient seen on dialysis without complaint Objective - Vital Signs Vital signs: Vital Signs - 12hr 04/15/17 04/16/17 04/16/17 23:50 07:00 07:23 Temperature 98.3 F 98.5 F Pulse Rate [ 92 H 93 H Right] Respiratory 20 20 Rate Blood Pressure 130/96 147/108 [Right Arm] O2 Sat by Pulse 99 99 100 Oximetry - General Appearance General appearance: well-developed, well-nourished EENT: ATNC Respiratory: Present: Clear to Ascultation Cardiology: regular, S1S2 Gastrointestinal: normal, no tenderness, no distended Integumentary: no rash Neurologic: no focal deficit Musculoskeletal: other (no edema) Psychiatric: cooperative - Lab 04/14/17 01:29 04/16/17 07:14 Most recent lab results Calcium 8.4 mg/dL (8.4-10.2) 04/16/17 07:14
[2017-04-16] MEDS ORDERED: NACL 0.9% 1000 ML 2,000 ML ONE (09:53)
[2017-04-16 13:34] VITALS: BP 160/107
== END 2017-04-16 14:30 | disposition home or self-care (01) | DRG 286 ==
LOC: ED 00:27 → 3A 09:55
PROVIDERS: ADMIT Internal Medicine; ATTEND Internal Medicine
PROC: 5A1D00Z (ICD-10-PCS; 2017-04-14)
PROC: 02PA33Z Removal of Infusion Device from Heart, Percutaneous Approach (ICD-10-PCS; principal; 2017-04-15)
PROC: B2141ZZ Fluoroscopy of Right Heart using Low Osmolar Contrast (ICD-10-PCS; 2017-04-15)
PROC: 02H633Z Insertion of Infusion Device into Right Atrium, Percutaneous Approach (ICD-10-PCS; 2017-04-15)
DX: T82.41XA Breakdown (mechanical) of vascular dialysis catheter, initial encounter (principal); N18.6 End stage renal disease; E87.2 Acidosis; I13.2 Hypertensive heart and chronic kidney disease with heart failure and with stage 5 chronic kidney disease, or end stage renal disease; D68.59 Other primary thrombophilia; I50.9 Heart failure, unspecified; F17.200 Nicotine dependence, unspecified, uncomplicated; E87.5 Hyperkalemia; D63.1 Anemia in chronic kidney disease; I16.0 Hypertensive urgency; Z88.0 Allergy status to penicillin; Z86.711 Personal history of pulmonary embolism; Z91.15 Patient's noncompliance with renal dialysis; Z82.49 Family history of ischemic heart disease and other diseases of the circulatory system; Z99.2 Dependence on renal dialysis
CPT/HCPCS: 36415; 36581; 71010; 71250; 77001; 80048; 84484; 85007; 85025; 85610; 93005; 93010; 94640; 96374; 96375; 99406; C1750; C1769; J0610; J1644; J1815; J2250; J2997; J3010; J7030